=== PATIENT | female | born 1955 | race Caucasian/White ===

== ENCOUNTER 2018-01-08 14:16 | Outpatient (RCR) | payer BC, OTHER ==
[2018-01-08] MEDS ORDERED: ONDANSETRON MDV (CANCER CENTER 8 MG, DEXAMETHASONE INJECTION 10 MG in NS (IVPB) CANCER ... IV ONE (16:00)
[2018-01-12] MEDS ORDERED: LISI10TA2 (22:59)
[2018-01-12] MEDS ORDERED: AMLO10TA6 (22:59)
[2018-01-12] MEDS ORDERED: DEXA4TAB (22:59)
[2018-01-12] MEDS ORDERED: ONDA8TAB12 (22:59)
[2018-01-12] MEDS ORDERED: PANT40TA3 (22:59)
[2018-01-12] MEDS ORDERED: PROM25TA14 (22:59)
== END 2018-01-25 | disposition home or self-care (01) ==
LOC: ONC 14:16
PROVIDERS: ATTEND Internal Medicine Hematology & Oncology
DX: C43.4 Malignant melanoma of scalp and neck (principal); C73 Malignant neoplasm of thyroid gland; C77.0 Secondary and unspecified malignant neoplasm of lymph nodes of head, face and neck; M06.9 Rheumatoid arthritis, unspecified; M79.7 Fibromyalgia; I10 Essential (primary) hypertension; G43.909 Migraine, unspecified, not intractable, without status migrainosus; R11.0 Nausea; Z79.899 Other long term (current) drug therapy
CPT/HCPCS: 96374

== ENCOUNTER 2018-01-12 21:23 | Emergency (ER) | payer BC ==
[~2018-01-12] VITALS: Ht 167.6 cm; Wt 127.0 kg
[2018-01-12] MEDS ORDERED: ONDA8TAB12 (22:59)
[2018-01-12] MEDS ORDERED: PANT40TA3 (22:59)
[2018-01-12] MEDS ORDERED: PROM25TA14 (22:59)
[2018-01-12] MEDS ORDERED: LISI10TA2 (22:59)
[2018-01-12] MEDS ORDERED: AMLO10TA6 (22:59)
[2018-01-12] MEDS ORDERED: DEXA4TAB (22:59)
[2018-01-12] MEDS ORDERED: NS IV 1000 ML 1,000 ML IV STA (23:03)
[2018-01-12] MEDS ORDERED: fentaNYL INJECTION 100 MCG/2 ML AMP IVP STA (23:03)
[2018-01-12] MEDS ORDERED: ONDANSETRON 4 MG/2 ML (SDV) Z0FRAN IVP ONE (23:15)
[2018-01-12 23:24] LABS: BILIRUBIN,URINE NEGATIVE (NEGATIVE); CLARITY,URINE CLEAR; COLOR,URINE YELLOW; GLUCOSE, URINE (UA) NEGATIVE (NEGATIVE); KETONES,URINE NEGATIVE (NEGATIVE); LEUKOCYTE ESTERASE ,URINE 2+ (NEGATIVE); NITRITE,URINE NEGATIVE (NEGATIVE); PH,URINE 5 (5-9); PROTEIN,URINE NEGATIVE (NEGATIVE); UROBILINOGEN,URINE NORMAL (NORMAL)
[2018-01-12 23:36] LABS: BACTERIA,URINE MODERATE /HPF; HYALINE CASTS, URINE 0-2 /LPF; RBC,URINE RARE /HPF; WBC,URINE 0-2 /HPF
[2018-01-12 23:47] LABS: BASOPHILS % (AUTO) 0 % (0-10); EOSINOPHILS % (AUTO) 0 % (0-10); HEMATOCRIT 40 % (35-52); HEMOGLOBIN 13.8 G/DL (11.5-16.0); LYMPHOCYTES # (AUTO) 0.8 X 10^3 (1.0-4.0); LYMPHOCYTES % (AUTO) 13 % (12-44); MEAN CORPUSCULAR HEMOGLOBIN 32 PG (25-34); MEAN CORPUSCULAR HGB CONC 35 G/DL (32-36); MEAN CORPUSCULAR VOLUME 92 FL (80-99); MEAN PLATELET VOLUME 10.6 FL (7.4-10.4); MONOCYTES # (AUTO) 0.2 X 10^3 (0.0-1.0); MONOCYTES % (AUTO) 3 % (0-12); NEUTROPHILS # (AUTO) 5.3 X 10^3 (1.8-7.8); NEUTROPHILS % (AUTO) 85 % (42-75); PLATELET COUNT 267 10^3/uL (130-400); RED BLOOD COUNT 4.37 10^6/uL (4.35-5.85); RED CELL DISTRIBUTION WIDTH 13.6 % (10.0-14.5); WHITE BLOOD COUNT 6.3 10^3/uL (4.3-11.0)
--- NOTE | 2018-01-12 23:49 | ED Abdominal Pain ---
General Chief Complaint: Abdominal/GI Problems Stated Complaint: STOMACH NAUSEA/PAIN Nursing Triage Note: ABDOMINAL PAIN Sepsis Screen: No Definite Risk Source of Information: Patient Exam Limitations: No Limitations History of Present Illness Date Seen by Provider: Jan 12, 2018 Time Seen by Provider: 23:00 Initial Comments Here with report of weeks of nausea and abdominal pain. States abdominal pain is all over. She is currently undergoing treatment for melanoma and had neck dissection. She also has thyroid cancer and will need thyroidectomy. She is not currently on chemotherapy or radiation therapy. She has had problems with nausea and vomiting for the last several weeks and was initiated on ondansetron. This has not helped. She does not really take anything for pain. She eats a little and drinks a little each day but states it's not very much. Intermittent loose stool noted. Denies dysuria. Denies blood in her urine or stool. Timing/Duration: Changing Over Time, Getting Worse, Other (3 weeks) Severity/Quality: Moderate, Aching Location: Generalized Abdomen Radiation: No Radiation Activities at Onset: None Modifying Factors: Worsens With Eating, Worsens With Movement; Improves With Resting Associated Symptoms: No Back Pain, No Chest Pain, No Diaphoresis, No Fever/ Chills; Fatigue, Nausea/Vomiting; No Shortness of Air; Weakness Allergies and Home Medications Allergies Coded Allergies: No Known Drug Allergies (Unverified , 01/08/18) Patient Home Medication List Home Medication List Reviewed: Yes Review of Systems Review of Systems Constitutional: see HPI; No chills, No fever EENTM: No Symptoms Reported Respiratory: No Symptoms Reported Cardiovascular: No Symptoms Reported Gastrointestinal: See HPI, Abdominal Pain, Diarrhea, Nausea; Denies Rectal Bleeding; Vomiting Genitourinary: No Symptoms Reported Musculoskeletal: no symptoms reported All Other Systems Reviewed Negative Unless Noted: Yes Past Kiohvgj-Bspijk-Nwgvcv Hx Past Med/Social Hx: Reviewed Nursing Past Med/Soc Hx Patient Social History Alcohol Use: Denies Use Recreational Drug Use: No Smoking Status: Never a Smoker 2nd Hand Smoke Exposure: No Recent Foreign Travel: No Contact w/Someone Who Travel: No Recent Infectious Disease Expo: No Recent Hopitalizations: No Immunizations Up To Date Tetanus Booster (TDap): Unknown Seasonal Allergies Seasonal Allergies: No Past Medical History Surgeries: Yes (B-KNEES, HERNIA, neck dissection for lymph nodes 2) Abdominal, Gallbladder, Orthopedic Respiratory: No Cardiac: Yes Hypertension Neurological: No : 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 oz. 127.741507yd; BMI Method:Estimated General Appearance: WD/WN, no apparent distress, obese HEENT: PERRL/EOMI, pharynx normal, other (surgical wound on the left side of the neck healing well.) Respiratory: lungs clear, normal breath sounds Cardiovascular: regular rate, rhythm, no murmur Gastrointestinal: soft; No guarding, No rebound; tenderness (mild diffuse tenderness in different areas without 1 that is standing at the most.) Extremities: non-tender, normal inspection Back: normal inspection, no CVA tenderness, no vertebral tenderness Neurologic/Psychiatric: alert, oriented x 3 Skin: normal color, warm/dry Focused Exam Lactate Level 01/13/18 00:22: Lactic Acid Level 0.75 Lactic Acid Level Laboratory Tests Test 01/13/18 00:22 Lactic Acid Level 0.75 MMOL/L (0.50-2.00) Progress/Results/Core Measures Results/Orders Lab Results Laboratory Tests Test 01/12/18 23:10 01/12/18 23:15 01/13/18 00:22 Range/Units Urine Color YELLOW Urine Clarity CLEAR Urine pH 5 5-9 Urine Specific Jordan 1.020 1.016-1.022 Urine Protein NEGATIVE NEGATIVE Urine Glucose (UA) NEGATIVE NEGATIVE Urine Ketones NEGATIVE NEGATIVE Urine Nitrite NEGATIVE NEGATIVE Urine Bilirubin NEGATIVE NEGATIVE Urine Urobilinogen NORMAL NORMAL MG/DL Urine Leukocyte Esterase 2+ H NEGATIVE Urine RBC (Auto) 2+ H NEGATIVE Urine RBC RARE /HPF Urine WBC 0-2 /HPF Urine Squamous Epithelial Cells 5-10 /HPF Urine Crystals NONE /LPF Urine Bacteria MODERATE H /HPF Urine Casts PRESENT /LPF Urine Hyaline Casts 0-2 H /LPF Urine Mucus SMALL H /LPF Urine Culture Indicated YES White Blood Count 6.3 4.3-11.0 10^3/uL Red Blood Count 4.37 4.35-5.85 10^6/uL Hemoglobin 13.8 11.5-16.0 G/DL Hematocrit 40 35-52 % Mean Corpuscular Volume 92 80-99 FL Mean Corpuscular Hemoglobin 32 25-34 PG Mean Corpuscular Hemoglobin Concent 35 32-36 G/DL Red Cell Distribution Width 13.6 10.0-14.5 % Platelet Count 267 130-400 10^3/uL Mean Platelet Volume 10.6 H 7.4-10.4 FL Neutrophils (%) (Auto) 85 H 42-75 % Lymphocytes (%) (Auto) 13 12-44 % Monocytes (%) (Auto) 3 0-12 % Eosinophils (%) (Auto) 0 0-10 % Basophils (%) (Auto) 0 0-10 % Neutrophils # (Auto) 5.3 1.8-7.8 X 10^3 Lymphocytes # (Auto) 0.8 L 1.0-4.0 X 10^3 Monocytes # (Auto) 0.2 0.0-1.0 X 10^3 Eosinophils # (Auto) 0.0 0.0-0.3 10^3/uL Basophils # (Auto) 0.0 0.0-0.1 10^3/uL Sodium Level 137 135-145 MMOL/L Potassium Level 5.1 H 3.6-5.0 MMOL/L Chloride Level 107 98-107 MMOL/L Carbon Dioxide Level 19 L 21-32 MMOL/L Anion Gap 11 5-14 MMOL/L Blood Urea Nitrogen 38 H 7-18 MG/DL Creatinine 1.86 H 0.60-1.30 MG/DL Estimat Glomerular Filtration Rate 27 BUN/Creatinine Ratio 20 Glucose Level 140 H 70-105 MG/DL Calcium Level 9.6 8.5-10.1 MG/DL Corrected Calcium 9.4 8.5-10.1 MG/DL Total Bilirubin 0.5 0.1-1.0 MG/DL Aspartate Amino Transf (AST/SGOT) 18 5-34 U/L Alanine Aminotransferase (ALT/SGPT) 22 0-55 U/L Alkaline Phosphatase 92 40-136 U/L C-Reactive Protein High Sensitivity 0.12 0.00-0.50 MG/DL Total Protein 7.3 6.4-8.2 GM/DL Albumin 4.2 3.2-4.5 GM/DL Thyroid Stimulating Hormone (TSH) 0.19 L 0.35-4.94 UIU/ML Free Thyroxine 1.19 0.70-1.48 NG/DL Lactic Acid Level 0.75 0.50-2.00 MMOL/L My Orders Orders - KISHA GALLO MD Cbc With Automated Diff (01/12/18 23:03) Comprehensive Metabolic Panel (01/12/18 23:03) Hs C Reactive Protein (01/12/18 23:03) Thyroid Stimulating Hormone (01/12/18 23:03) Ua Culture If Indicated (01/12/18 23:03) Ondansetron Injection (Zofran Injectio (01/12/18 23:15) Ns Iv 1000 Ml (Sodium Chloride 0.9%) (01/12/18 23:03) Saline Lock/Iv-Start (01/12/18 23:03) Fentanyl Injection (Sublimaze Injection (01/12/18 23:03) I-Stat Bedside Testing (01/12/18 23:03) Ct Abdomen/Pelvis Wo (01/12/18 23:36) Urine Culture (01/12/18 23:10) Lactic Acid Analyzer (01/12/18 23:38) Blood Culture (01/12/18 23:38) Chest Pa/Lat (2 View) (01/13/18 00:01) Free T4 (Free Thyroxine) (01/13/18 00:35) Medications Given in ED Current Medications Medications Dose Ordered Sig/Greyson Route Start Time Stop Time Status Last Admin Dose Admin Ondansetron HCl 4 mg ONCE ONCE IVP 01/12/18 23:15 01/12/18 23:16 DC 01/12/18 23:11 4 MG Vital Signs/I&O 01/12/18 22:50 Temp 98.6 Pulse 72 Resp 18 B/P (MAP) 128/65 (86) Pulse Ox 94 O2 Delivery Room Air Blood Pressure Mean: 86 iStat Bedside Lab Testing Sodium (Na): 139.00 Potassium (K): 5.00 Chloride (CI): 105.00 TCO2: 24.00 Glucose (Glu): 143.00 Urea Nitrogen (BUN)/Urea: 41.00 Creatinine (Crea): 1.90 Anion Gap*: 15.00 Progress Progress Note : Progress Note Seen and evaluated. IV, labs, UA, normal saline 1 L bolus, Zofran 4 mg IV and fentanyl 50 g IV ordered. We did check i-STAT and creatinine was noted to be 1.9. CT abdomen and pelvis without contrast ordered due to elevated creatinine. 2351: CT does show questionable infiltrate at the left base and two -view chest x-ray was ordered. We have added blood cultures and lactic acid. Monitor patient. 0115: Patient is doing better with fluids and meds given earlier. CT results discussed with the patient and family. Appears to be somewhat dehydration problem and this was discussed with the patient and family. At this point, admission seems more risky than discharged home and supportive therapy at home. Patient and family agree. 0145: Fluids complete. Discharged home with return precautions. Patient verbalize understanding instructions and agreement with plan. Diagnostic Imaging Diagonstic Imaging: CT Plain Films/CT/US/NM/MRI: abdomen, pelvis Comments Suspected atelectasis and/or scar at lung bases. Correlate for any evidence of left lung base infiltrate. No bowel obstruction. There are a few mildly distended small bowel segments with air fluid levels. Portions of bowel including the colon under distended limiting and evaluation for wall thickening. Difficult to exclude mural thickening and under distended bowel. No. Enteric inflammatory changes. Diverticulosis without diverticulitis. Reviewed: Reviewed Night [facility] Study Diagonstic Imaging: Xray Plain Films/CT/US/NM/MRI: chest Comments Left basilar atelectasis Reviewed: Reviewed by Me Departure Impression Primary Impression: Dehydration Additional Impression: Diffuse abdominal pain Disposition: HOME, SELF-CARE Condition: Improved Departure-Patient Inst. Decision time for Depature: 01:48 Referrals: DENAE TURNER MD (PCP) Primary Care Physician Patient Instructions: Acute Abdomen (Belly Pain), Adult (DC), Dehydration, Adult (DC) Add. Discharge Instructions: All discharge instructions reviewed with patient and/or family. Voiced understanding. Drink plenty of fluids. Follow-up with your DrAdam in one to 2 days for recheck. Light diet for the next 24-48 hours and then advance as tolerated. Return for worse pain, fever, vomiting, weakness, breathing problems or other concerns as needed. Copy Copies To 1: DERRELL LEIJA MD, TIMOTHY D MD Jan 12, 2018 23:49
[2018-01-13 00:09] LABS: ALBUMIN 4.2 GM/DL (3.2-4.5); BILIRUBIN,TOTAL 0.5 MG/DL (0.1-1.0); CALCIUM 9.6 MG/DL (8.5-10.1); CREATININE SERUM 1.86 MG/DL (0.60-1.30); POTASSIUM 5.1 MMOL/L (3.6-5.0); TOTAL PROTEIN 7.3 GM/DL (6.4-8.2)
[2018-01-13 02:05] VITALS: BP 138/81
--- NOTE | 2018-01-13 07:00 | Diagnostic Imaging Report ---
PROCEDURE: CT abdomen and pelvis without contrast. TECHNIQUE: Multiple contiguous axial images were obtained through the abdomen and pelvis without the use of intravenous contrast. INDICATION: Abdominal pain with nausea, vomiting, diarrhea for 3 weeks. COMPARISON: None FINDINGS: There is airspace opacity in the left lung base with elevation of the left hemidiaphragm. The heart is upper normal in size. There is no pericardial effusion. There is coronary atherosclerosis. No focal liver lesions are seen. Cholecystectomy clips are noted. The spleen appears normal. The pancreas is normal. The adrenal glands appear normal. The right kidney is normal with no hydronephrosis or stone seen. The left kidney demonstrates no hydronephrosis as well, with a 2 cm parapelvic cyst present. There is calcific atherosclerosis of the aorta. A small hiatal hernia is present. The bowel loops are nondistended without findings of obstruction. There is no evidence of appendicitis. The colon is predominantly decompressed. A few diverticula are seen in the descending and sigmoid colon without evidence of diverticulitis. No free fluid or free air seen. No acute osseous abnormality is seen. IMPRESSION: 1. Airspace opacity in the left lung base, likely atelectasis although underlying infection is not excluded. 2. No evidence of bowel obstruction. 3. Colonic diverticulosis without diverticulitis. 4. Small hiatal hernia. Dictated by: Dictated on workstation # [id number]
--- NOTE | 2018-01-13 07:05 | Diagnostic Imaging Report ---
PATIENT HISTORY: Abdominal pain with nausea, vomiting, and diarrhea. TECHNIQUE: 2 views of the chest COMPARISON: None FINDINGS: There are left basilar airspace opacities. The heart is upper normal in size. No pneumothorax or large pleural effusion is seen. No acute osseous abnormality seen. There are surgical clips in the left neck. IMPRESSION: Left basilar airspace opacities, may represent atelectasis or infiltrate. No large effusion is seen. Dictated by: Dictated on workstation # [id number]
== END 2018-01-13 02:05 | disposition home or self-care (01) ==
LOC: EDUNIT# 21:23 → ER 21:25
DX: E86.0 Dehydration (principal); R10.84 Generalized abdominal pain; C43.9 Malignant melanoma of skin, unspecified; C73 Malignant neoplasm of thyroid gland; I10 Essential (primary) hypertension; M06.9 Rheumatoid arthritis, unspecified; Z87.19 Personal history of other diseases of the digestive system
CPT/HCPCS: 36415; 71046; 74176; 80053; 81000; 83605; 84439; 84443; 85025; 86141; 87040; 87077; 87088; 96361; 96374; 96375

== ENCOUNTER 2018-02-17 11:41 | Outpatient (CLI) | payer BC ==
[~2018-02-17] VITALS: Ht 157.5 cm; Wt 114.3 kg
[~2018-02-17 11:41] MED LIST: AMLO10TA6 PO; DEXA4TAB; LISI10TA2 PO; ONDA8TAB12 PO; PANT40TA3 PO; PROM25TA14
[2018-02-17] MEDS ORDERED: LEVO25TA5 PO (13:25)
== END 2018-02-17 13:41 | disposition home or self-care (01) ==
LOC: PREOP 11:41
PROVIDERS: ATTEND Surgery
DX: Z01.818 Encounter for other preprocedural examination (principal)

== ENCOUNTER 2018-02-18 08:08 | Day surgery (SDC) | payer BC ==
[~2018-02-18] VITALS: Ht 157.5 cm; Wt 114.3 kg
[~2018-02-18 08:08] MED LIST changes: +LEVO25TA5 PO
[2018-02-18] MEDS ORDERED: LACTATED RINGERS 1,000 ML IV PRN (08:39)
[2018-02-18] MEDS ORDERED: FAMOTIDINE 20MG/2ML IV (PEPCID) IV ONE (08:45)
[2018-02-18] MEDS ORDERED: ONDANSETRON 4 MG/2 ML (SDV) Z0FRAN IV ONE (08:45)
[2018-02-18] MEDS ORDERED: ceFAZolin 2 GM IV Premixed 50 ML IV ONE (09:30)
[2018-02-18 09:36] VITALS: BP 140/87
--- NOTE | 2018-02-18 10:17 | Progress Note-Pre Operative ---
Pre-Operative Progress Note H&P Reviewed The H&P was reviewed, patient examined and no changes noted. Time Seen by Provider: 10:14 Date H&P Reviewed: Feb 18, 2018 Time H&P Reviewed: 10:16 Pre-Operative Diagnosis: , Metastatic Melanoma ROYA BABCOCK DO Feb 18, 2018 10:17
[2018-02-18] MEDS ORDERED: 0.9% SODIUM CHLORIDE PF INJ 20 ML VIAL ONE (10:28)
[2018-02-18] MEDS ORDERED: HEParin (CENTRAL IV FLUSH) 500 UNIT/5 ML SYR ONE (10:28)
[2018-02-18] MEDS ORDERED: LIDOCAINE/EPI 1%-1:200,000 (XYLOCAINE) 10 ML VIAL ONE (10:28)
[2018-02-18] MEDS ORDERED: PROPOFOL INJECTION 50 ML IV ONE (10:28)
[2018-02-18] MEDS ORDERED: MIDAZOLAM 2 MG/2 ML (VERSED) VIAL ONE (10:29)
--- NOTE | 2018-02-18 11:26 | Progress Note-Post Operative ---
Post-Operative Progess Note Surgeon (s)/Cook Helper Juice (s) Surgeon ROYA BABCOCK DO Cook Helper Juice: none Pre-Operative Diagnosis , Metastatic Melanoma Post-Operative Diagnosis same Procedure & Operative Findings Date of Procedure 02/18/18 Procedure Performed/Findings Insertion of leta-cath Anesthesia Type IV sedation by PACKAGE CAR DRIVER Estimated Blood Loss Estimated blood loss (mL): scant Specimens/Packing Specimens Removed none ROYA BABCOCK DO Feb 18, 2018 11:26
--- NOTE | 2018-02-18 11:29 | Discharge Inst-Surgical ---
Discharge Inst-Surgical Depart Medication/Instructions New, Converted or Re-Newed RX: Other (No RX needed, pt has home pain meds) Patient Instructions Follow up Appt: Make appointment for 1 week. Instructions: No lifting greater than 10 pounds. No strenuous activity. May shower in 24 hours, no tub bath or soaking. Use incentive spirometer at home as directed. No Smoking Skin/Wound Care: May remove bandages in am. You need to leave the Dermabond on over incision it will fall off its own. Symptoms to Report: Appetite Changes, Extremity Discoloration, Numbness/Tingling, Swelling Increased , Bleeding Excessive, Eyesight Changes, Pain Increased, Urine Color Change, Constipation(Persistent), Fever over 101 degree F, Pain/Pressure in chest, Urinating Difficulty, Cough Up/Vomit Blood, Heart Beat Irreg/Pounding, Pain/ Pressure in jaw, Vaginal Bleeding Increase, Cramps in feet or legs, Lightheadedness, Pain/Pressure in shoulder, Diarrhea(Persistent), Memory Changes Suddenly, Questions/Concerns, Weight gain consecutive days, Dizziness/ Fainting, Nausea/Vomiting, Shortness of Breath, Weight gain over 2 pounds If questions or concerns contact your physician Or seek help at emergency department. Activity Activity as Tolerated: Yes Driving Instructions: No Driving/Refer to Dr. Julien Discharge Diet: No Restrictions Diet After 24 Hours: Clear Liquid if Nauseous If Any Problems/Questions/Issu: Contact Your Physician, Go to Emergency Room Skin/Wound Care Infection Signs and Symptoms: Increased Redness, Foul Odor of Wound, Increased Drainage, Skin Itchy or Has a Rash, Increased Swelling, Temperature Above 101 F Bathing Instructions: Shower Stitches/Prospect/Dermabond Dis: Dermabond Ice Pack: Ice On and Off Site (as needed for pain) ROYA BABCOCK DO Feb 18, 2018 11:29
[2018-02-18] MEDS ORDERED: ONDANSETRON 4 MG/2 ML (SDV) Z0FRAN IVP PRN (11:30)
[2018-02-18] MEDS ORDERED: morphine INJ 10 MG/ML 1ML (SYR OR VIAL) IVP ONE (11:30)
[2018-02-18 11:50] VITALS: BP 156/83
--- NOTE | 2018-02-18 11:59 | Anesthesia-General Post-Op ---
MAC Patient Condition Mental Status/LOC: Same as Preop Cardiovascular: Satisfactory Nausea/Vomiting: Absent Respiratory: Satisfactory Pain: Controlled Complications: Absent Post Op Complications Complications None Follow Up Care/Instructions Patient Instructions None needed. Anesthesiology Discharge Order Discharge Order Patient is doing well, no complaints, stable vital signs, no apparent adverse anesthesia problems. No complications reported per nursing. EUGENIA GALEANO CRNA Feb 18, 2018 11:59
--- NOTE | 2018-02-18 12:17 | Diagnostic Imaging Report ---
Indication: Dyspnea, catheter placement. Comparison: 01/13/2018. Discussion: Single portable upright view of the chest was obtained. Low lung volumes. The heart appears enlarged. Right chest wall Rgzmao-k-Obab is present with tip in the distal SVC. No pneumothorax. No definite pleural fluid. Impression: 1. Right chest wall Aoydyn-n-Zhmj with tip in the distal SVC. No pneumothorax. Dictated by: Dictated on workstation # [id number]
[2018-02-18 12:20] VITALS: BP 136/75
--- NOTE | 2018-02-18 12:24 | Diagnostic Imaging Report ---
INDICATION: Fluoroscopy during port placement. FINDINGS: Fluoroscopy was provided during port placement. 6 seconds of fluoroscopy was utilized. A right chest wall port is in place. IMPRESSION: Fluoroscopy for right chest wall port placement. Dictated by: Dictated on workstation # [id number]
[2018-02-18 12:45] VITALS: BP 136/75
--- NOTE | 2018-02-18 16:05 | OPERATIVE REPORT ---
DATE OF SERVICE: PREOPERATIVE DIAGNOSES: Venous insufficiency and metastatic melanoma. POSTOPERATIVE DIAGNOSES: Venous insufficiency and metastatic melanoma. PROCEDURE: Insertion of Port-A-Cath into right anterior chest wall, right subclavian vein. SURGEON: Doe Parry DO. CAR SUPPLIER: None. ANESTHESIA: IV sedation by the anesthesiologist. SPECIMEN: None. BLOOD LOSS: Scant. FLUIDS: Per anesthesia. POSTOPERATIVE CONDITION: Stable. INDICATION FOR PROCEDURE: The patient is a 62-year-old female who unfortunately has metastatic melanoma and has had some venous insufficiency, has had problems in the past with IVs and needs a Port-A-Cath placed for long-term chemotherapy. FINDINGS: The patient had a Port-A-Cath placed anterior chest wall and right subclavian vein. PROCEDURE NOTE: After informed consent was obtained, the patient was brought to the operating room, placed on the table in supine position. She was sterilely prepped and draped in normal fashion, then placed slightly Trendelenburg infiltrate the right anterior chest wall and towards the right clavicle with local lidocaine. Then, using an 18-gauge negative inspiration advanced under the clavicle. Cannulated the subclavian vein, but then could not advance pushed a little bit forward and actually get into the subclavian artery pulled this back held pressure for 5 minutes and then advanced again negative inspiration and again cannulated the subclavian vein. This was able to get the guidewire to go down, could not get down the first time; went down easily without any difficulty. Fluoroscopy checked, it was in good position. There was actually into the heart. Pulled out the needle and then held clamped the wire in place with a hemostat and then made a stab incision at the guidewire with a #11 blade and then using an #11 blade, made an incision in the right anterior chest wall to create a pocket. Carried this incision down through the skin into subcutaneous tissue, then deepened down to subcutaneous tissue with Bovie electrocautery controlling hemostasis and then using Bovie electrocautery as well as blunt dissection to create a pocket. Once the pocket was created, then over the guidewire placed the dilator using Seldinger technique, it went in easily, checked with fluoroscopy, it was in good position, removed the inner portion of the dilator as well as the guidewire and then placed the catheter down the dilator sheath using the Seldinger technique, it went in easily, then checked with fluoroscopy, it was in good position, removed the dilator sheath. At this point then pulled the catheter back a little bit and then attached the catheter to the port and then placed locking mechanism over this to hold this in place, accessed the port with a Sapp needle. Good flash of blood and easily flushed with saline and then switched to , aspirated and then flushed with 2 mL of heparin flush. I then placed the port into the pocket previously created, sutured down in place with 3-0 Prolene suture and then incision was closed in a subcutaneous tissue with 3-0 Vicryl, 2 interrupted sutures and closed the skin, closed the first a stab incision with a 4-0 undyed Monocryl subcuticular stitch and closed. Then, the main incision with 3 interrupted 4-0 undyed Monocryl subcuticular stitches. Area was cleaned and dried and Dermabond was placed as well as a pressure dressing. The patient then transferred to recovery room in stable condition. Sponge, instrument and needle counts correct at the end of the case. Job ID: [id number] DocumentID: [id number] Dictated Date: 02/18/2018 11:26:10 Senior Fund Accountant Date: 02/18/2018 16:04:24 Dictated By: DOE PARRY DO
== END 2018-02-18 12:45 | disposition home or self-care (01) ==
LOC: SDC 08:08
PROVIDERS: ATTEND Surgery
DX: C43.4 Malignant melanoma of scalp and neck (principal); C79.89 Secondary malignant neoplasm of other specified sites; I87.2 Venous insufficiency (chronic) (peripheral); Z11.2 Encounter for screening for other bacterial diseases; I11.0 Hypertensive heart disease with heart failure; I50.9 Heart failure, unspecified; G47.33 Obstructive sleep apnea (adult) (pediatric); M06.9 Rheumatoid arthritis, unspecified; K21.9 Gastro-esophageal reflux disease without esophagitis; Z79.899 Other long term (current) drug therapy; Z96.653 Presence of artificial knee joint, bilateral
CPT/HCPCS: 71045; 87081

== ENCOUNTER → 2018-03-27 | Outpatient (CLI) | payer BC ==
--- NOTE | 2018-03-27 10:37 | Diagnostic Imaging Report ---
INDICATION: Dysphagia. TECHNIQUE: The study was performed in conjunction with Speech Pathology. Videofluoroscopy was performed during the swallowing of barium in multiple consistencies. 1 minute 34 seconds of fluoroscopy was utilized. FINDINGS: The patient ingested thin liquid as well as pur?e, mechanical soft, meat, and cracker consistencies. The swallowing mechanism appears to be fairly normal. There is normal epiglottic tilt and laryngeal elevation. No penetration or aspiration was observed. There is very mild vallecular residue noted during the swallowing of the meat consistency. IMPRESSION: Mild vallecular residue with meat consistency. The study was otherwise unremarkable. No penetration or aspiration was observed. Dictated by: Dictated on workstation # [id number]
== END ==
LOC: RAD 08:51
PROVIDERS: ATTEND Internal Medicine Gastroenterology
DX: R13.10 Dysphagia, unspecified (principal)
CPT/HCPCS: 74230

== ENCOUNTER → 2018-07-15 | Outpatient (CLI) | payer BC ==
[~2018-07-15] MED LIST changes: -AMLO10TA6 PO; +AMLO10TA7 PO
--- NOTE | 2018-07-15 12:04 | Diagnostic Imaging Report ---
INDICATION: Left shoulder pain. AP, oblique, and transscapular views of the left shoulder are obtained. FINDINGS: No acute fracture or dislocation is seen. There is degenerative change of the AC joint and mild degenerative change of the glenohumeral joint. There is minimal distance between the acromion and humeral head on the oblique view, raising the possibility of rotator cuff pathology. IMPRESSION: Chronic changes in left shoulder as above with no acute appearing abnormality. There is minimal distance between the acromion and humeral head raising the possibility of rotator cuff pathology. Consider MRI if clinically warranted. Dictated by: Dictated on workstation # [id number]
== END ==
LOC: RAD 10:19
PROVIDERS: ATTEND Internal Medicine Hematology & Oncology
DX: M19.012 Primary osteoarthritis, left shoulder (principal)
CPT/HCPCS: 73030

== ENCOUNTER → 2018-07-21 | Outpatient (CLI) | payer BC ==
--- NOTE | 2018-07-21 13:12 | Diagnostic Imaging Report ---
INDICATION: Pelvic pain. COMPARISON: None. FINDINGS: AP view of the pelvis and multiple dedicated radiographic views of the bilateral hips obtained. There is no fracture, dislocation, bone destruction, or radiopaque foreign body. The visualized pelvic osseous structures and the SI joints demonstrate no acute fracture or dislocation. There is no bone destruction or radiopaque foreign body. The surrounding soft tissue structures are unremarkable. IMPRESSION: 1. Unremarkable radiographic exam of the pelvis and bilateral hips. Dictated by: Dictated on workstation # [id number]
--- NOTE | 2018-07-21 15:01 | Diagnostic Imaging Report ---
EXAMINATION: Magnetic resonance imaging of the left shoulder without contrast. DATE: July 21, 2018. COMPARISON: Left shoulder radiographs of July 15, 2018. HISTORY: 62-year-old female, left shoulder and arm pain. Decreased range of motion. TECHNIQUE: Magnetic Resonance Imaging sequences were performed of the shoulder without contrast. FINDINGS: There are limitations of the exam relating to low [id number] ratio. ROTATOR CUFF, LIGAMENTS, TENDONS, AND MUSCLES: There is a full width, full thickness tear of the supraspinatus tendon with tendon retraction to the level of the superior humeral head measuring 14 mm. The infraspinatus and teres minor tendons are intact. The subscapularis tendon is intact. There is normal rotator cuff muscle bulk and signal. LONG HEAD OF BICEPS: The biceps labral attachment and long head of the biceps tendon are intact. The long head of the biceps tendon is normally positioned within the bicipital groove. GLENOHUMERAL JOINT: The humeral head is well positioned relative to the glenoid. The labrum is grossly intact. There is no identified paralabral cyst. The articular cartilage is grossly intact. There is no joint effusion. ACROMIOCLAVICULAR JOINT: The acromioclavicular joint is normally aligned. The coracoclavicular and coracoacromial ligaments are intact. There are moderate acromioclavicular degenerative changes with osteophytes extending approximately 3 mm below the joint margin. BONE: There is no os acromiale. The bone marrow signal is within normal limits. Specifically, negative for fracture, osteomyelitis, osteonecrosis, or marrow replacing process. BURSAE AND SOFT TISSUES: Bursal and additional soft tissue assessment is grossly unremarkable. The very small amount of fluid within the subacromial/subdeltoid bursa may be within normal limits for detection on MRI. IMPRESSION: 1. Full width, full thickness tear of the supraspinatus tendon with tendon retraction of 1.4 cm to the level of the superior humeral head. No fatty muscle atrophy. 2. Moderate acromioclavicular degenerative changes with 3 mm undersurface osteophytes. No os acromiale. 3. Grossly intact labrum and unremarkable glenohumeral joint assessment. 4. No acute fracture, bone contusion, or evidence of osteonecrosis. Dictated by: Dictated on workstation # [id number]
== END ==
LOC: RAD 11:55
PROVIDERS: ATTEND Internal Medicine Hematology & Oncology
DX: M75.102 Unspecified rotator cuff tear or rupture of left shoulder, not specified as traumatic (principal); M19.012 Primary osteoarthritis, left shoulder; R10.2 Pelvic and perineal pain
CPT/HCPCS: 73221; 73523

== ENCOUNTER 2018-08-26 12:03 | Outpatient (RCR) | payer BC ==
[2018-06-03 11:24] LABS: BASOPHILS % (AUTO) 1 % (0-10); EOSINOPHILS # (AUTO) 0.2 10^3/uL (0.0-0.3); EOSINOPHILS % (AUTO) 3 % (0-10); HEMATOCRIT 41 % (35-52); HEMOGLOBIN 13.3 G/DL (11.5-16.0); LYMPHOCYTES # (AUTO) 1.4 X 10^3 (1.0-4.0); LYMPHOCYTES % (AUTO) 21 % (12-44); MEAN CORPUSCULAR HEMOGLOBIN 29 PG (25-34); MEAN CORPUSCULAR HGB CONC 32 G/DL (32-36); MEAN CORPUSCULAR VOLUME 90 FL (80-99); MEAN PLATELET VOLUME 10.2 FL (7.4-10.4); MONOCYTES # (AUTO) 0.7 X 10^3 (0.0-1.0); MONOCYTES % (AUTO) 10 % (0-12); NEUTROPHILS # (AUTO) 4.4 X 10^3 (1.8-7.8); NEUTROPHILS % (AUTO) 66 % (42-75); PLATELET COUNT 266 10^3/uL (130-400); RED CELL DISTRIBUTION WIDTH 13.3 % (10.0-14.5); WHITE BLOOD COUNT 6.7 10^3/uL (4.3-11.0)
[2018-06-03 11:46] LABS: CARBON DIOXIDE 25 MMOL/L (21-32); CHLORIDE 109 MMOL/L (98-107); POTASSIUM 4.4 MMOL/L (3.6-5.0); SODIUM 142 MMOL/L (135-145)
[2018-06-03 11:47] LABS: ALANINE AMINOTRANSFERASE 15 U/L (0-55); ALBUMIN 3.9 GM/DL (3.2-4.5); ALKALINE PHOSPHATASE 84 U/L (40-136); BILIRUBIN,TOTAL 0.5 MG/DL (0.1-1.0); BUN/CREATININE RATIO 13; CREATININE SERUM 0.86 MG/DL (0.60-1.30); GFR ESTIMATED > 60; GLUCOSE 94 MG/DL (70-105); TOTAL PROTEIN 6.9 GM/DL (6.4-8.2)
[2018-06-18 14:22] LABS: BASOPHILS % (AUTO) 1 % (0-10); EOSINOPHILS # (AUTO) 0.2 10^3/uL (0.0-0.3); EOSINOPHILS % (AUTO) 3 % (0-10); HEMATOCRIT 40 % (35-52); HEMOGLOBIN 13.2 G/DL (11.5-16.0); LYMPHOCYTES # (AUTO) 1.3 X 10^3 (1.0-4.0); LYMPHOCYTES % (AUTO) 20 % (12-44); MEAN CORPUSCULAR HEMOGLOBIN 30 PG (25-34); MEAN CORPUSCULAR HGB CONC 33 G/DL (32-36); MEAN CORPUSCULAR VOLUME 90 FL (80-99); MEAN PLATELET VOLUME 9.6 FL (7.4-10.4); MONOCYTES # (AUTO) 0.6 X 10^3 (0.0-1.0); MONOCYTES % (AUTO) 9 % (0-12); NEUTROPHILS # (AUTO) 4.5 X 10^3 (1.8-7.8); NEUTROPHILS % (AUTO) 68 % (42-75); PLATELET COUNT 266 10^3/uL (130-400); RED CELL DISTRIBUTION WIDTH 13.3 % (10.0-14.5); WHITE BLOOD COUNT 6.6 10^3/uL (4.3-11.0)
[2018-06-18 14:41] LABS: ALBUMIN 3.9 GM/DL (3.2-4.5); BILIRUBIN,TOTAL 0.6 MG/DL (0.1-1.0); CALCIUM 9.4 MG/DL (8.5-10.1); CREATININE SERUM 0.94 MG/DL (0.60-1.30); POTASSIUM 3.6 MMOL/L (3.6-5.0); TOTAL PROTEIN 6.7 GM/DL (6.4-8.2)
[2018-07-01 08:50] LABS: BASOPHILS % (AUTO) 1 % (0-10); EOSINOPHILS # (AUTO) 0.2 10^3/uL (0.0-0.3); EOSINOPHILS % (AUTO) 4 % (0-10); HEMATOCRIT 40 % (35-52); HEMOGLOBIN 12.9 G/DL (11.5-16.0); LYMPHOCYTES # (AUTO) 1.2 X 10^3 (1.0-4.0); LYMPHOCYTES % (AUTO) 23 % (12-44); MEAN CORPUSCULAR HEMOGLOBIN 29 PG (25-34); MEAN CORPUSCULAR HGB CONC 32 G/DL (32-36); MEAN CORPUSCULAR VOLUME 91 FL (80-99); MEAN PLATELET VOLUME 9.9 FL (7.4-10.4); MONOCYTES # (AUTO) 0.4 X 10^3 (0.0-1.0); MONOCYTES % (AUTO) 9 % (0-12); NEUTROPHILS # (AUTO) 3.2 X 10^3 (1.8-7.8); NEUTROPHILS % (AUTO) 64 % (42-75); PLATELET COUNT 241 10^3/uL (130-400); RED CELL DISTRIBUTION WIDTH 13.4 % (10.0-14.5); WHITE BLOOD COUNT 5.1 10^3/uL (4.3-11.0)
[2018-07-01 09:09] LABS: ALANINE AMINOTRANSFERASE 13 U/L (0-55); ALBUMIN 3.9 GM/DL (3.2-4.5); ALKALINE PHOSPHATASE 94 U/L (40-136); BILIRUBIN,TOTAL 0.6 MG/DL (0.1-1.0); BUN/CREATININE RATIO 14; CALCIUM 9.5 MG/DL (8.5-10.1); CARBON DIOXIDE 27 MMOL/L (21-32); CHLORIDE 106 MMOL/L (98-107); CREATININE SERUM 0.91 MG/DL (0.60-1.30); GFR ESTIMATED > 60; GLUCOSE 108 MG/DL (70-105); SODIUM 140 MMOL/L (135-145); TOTAL PROTEIN 6.9 GM/DL (6.4-8.2)
[2018-07-15 09:13] LABS: BASOPHILS % (AUTO) 1 % (0-10); EOSINOPHILS # (AUTO) 0.2 10^3/uL (0.0-0.3); EOSINOPHILS % (AUTO) 4 % (0-10); HEMATOCRIT 39 % (35-52); HEMOGLOBIN 12.7 G/DL (11.5-16.0); LYMPHOCYTES # (AUTO) 1.3 X 10^3 (1.0-4.0); LYMPHOCYTES % (AUTO) 25 % (12-44); MEAN CORPUSCULAR HEMOGLOBIN 30 PG (25-34); MEAN CORPUSCULAR HGB CONC 33 G/DL (32-36); MEAN CORPUSCULAR VOLUME 90 FL (80-99); MEAN PLATELET VOLUME 9.6 FL (7.4-10.4); MONOCYTES # (AUTO) 0.7 X 10^3 (0.0-1.0); MONOCYTES % (AUTO) 13 % (0-12); NEUTROPHILS # (AUTO) 2.8 X 10^3 (1.8-7.8); NEUTROPHILS % (AUTO) 57 % (42-75); PLATELET COUNT 286 10^3/uL (130-400); RED CELL DISTRIBUTION WIDTH 13.6 % (10.0-14.5)
[2018-07-15 09:32] LABS: ALANINE AMINOTRANSFERASE 16 U/L (0-55); ALBUMIN 3.9 GM/DL (3.2-4.5); ALKALINE PHOSPHATASE 86 U/L (40-136); BILIRUBIN,TOTAL 0.6 MG/DL (0.1-1.0); BUN/CREATININE RATIO 15; CALCIUM 9.1 MG/DL (8.5-10.1); CARBON DIOXIDE 24 MMOL/L (21-32); CHLORIDE 109 MMOL/L (98-107); CREATININE SERUM 0.86 MG/DL (0.60-1.30); GFR ESTIMATED > 60; GLUCOSE 92 MG/DL (70-105); POTASSIUM 3.9 MMOL/L (3.6-5.0); SODIUM 142 MMOL/L (135-145); TOTAL PROTEIN 6.8 GM/DL (6.4-8.2)
[2018-07-29 08:42] LABS: BASOPHILS % (AUTO) 1 % (0-10); EOSINOPHILS # (AUTO) 0.3 10^3/uL (0.0-0.3); EOSINOPHILS % (AUTO) 4 % (0-10); HEMATOCRIT 39 % (35-52); HEMOGLOBIN 12.9 G/DL (11.5-16.0); LYMPHOCYTES # (AUTO) 1.3 X 10^3 (1.0-4.0); LYMPHOCYTES % (AUTO) 23 % (12-44); MEAN CORPUSCULAR HEMOGLOBIN 30 PG (25-34); MEAN CORPUSCULAR HGB CONC 33 G/DL (32-36); MEAN CORPUSCULAR VOLUME 90 FL (80-99); MEAN PLATELET VOLUME 9.8 FL (7.4-10.4); MONOCYTES # (AUTO) 0.6 X 10^3 (0.0-1.0); MONOCYTES % (AUTO) 11 % (0-12); NEUTROPHILS # (AUTO) 3.5 X 10^3 (1.8-7.8); NEUTROPHILS % (AUTO) 61 % (42-75); PLATELET COUNT 278 10^3/uL (130-400); RED CELL DISTRIBUTION WIDTH 13.7 % (10.0-14.5); WHITE BLOOD COUNT 5.8 10^3/uL (4.3-11.0)
[2018-07-29 09:06] LABS: ALANINE AMINOTRANSFERASE 27 U/L (0-55); ALBUMIN 3.9 GM/DL (3.2-4.5); ALKALINE PHOSPHATASE 111 U/L (40-136); BILIRUBIN,TOTAL 0.4 MG/DL (0.1-1.0); BUN/CREATININE RATIO 15; CALCIUM 9.3 MG/DL (8.5-10.1); CARBON DIOXIDE 26 MMOL/L (21-32); CHLORIDE 109 MMOL/L (98-107); CREATININE SERUM 0.85 MG/DL (0.60-1.30); GFR ESTIMATED > 60; GLUCOSE 99 MG/DL (70-105); POTASSIUM 3.8 MMOL/L (3.6-5.0); SODIUM 143 MMOL/L (135-145); TOTAL PROTEIN 6.8 GM/DL (6.4-8.2)
[~2018-08-26] VITALS: Ht 167.6 cm; Wt 109.3 kg
[~2018-08-26 12:03] MED LIST changes: +NIVOLUMAB 240 MG in NS (IVPB) CANCER CENTER 50 ML IV SCH; +NS (IVPB) CANCER CENTER 250 ML IV SCH
[2018-08-26 12:31] LABS: BASOPHILS # (AUTO) 0.1 10^3/uL (0.0-0.1); BASOPHILS % (AUTO) 1 % (0-10); EOSINOPHILS # (AUTO) 0.3 10^3/uL (0.0-0.3); EOSINOPHILS % (AUTO) 3 % (0-10); HEMATOCRIT 40 % (35-52); HEMOGLOBIN 12.8 G/DL (11.5-16.0); LYMPHOCYTES # (AUTO) 1.1 X 10^3 (1.0-4.0); LYMPHOCYTES % (AUTO) 15 % (12-44); MEAN CORPUSCULAR HEMOGLOBIN 29 PG (25-34); MEAN CORPUSCULAR HGB CONC 32 G/DL (32-36); MEAN CORPUSCULAR VOLUME 90 FL (80-99); MEAN PLATELET VOLUME 9.8 FL (7.4-10.4); MONOCYTES # (AUTO) 0.5 X 10^3 (0.0-1.0); MONOCYTES % (AUTO) 7 % (0-12); NEUTROPHILS # (AUTO) 5.4 X 10^3 (1.8-7.8); NEUTROPHILS % (AUTO) 73 % (42-75); PLATELET COUNT 267 10^3/uL (130-400); RED CELL DISTRIBUTION WIDTH 13.6 % (10.0-14.5); WHITE BLOOD COUNT 7.3 10^3/uL (4.3-11.0)
[2018-08-26 12:46] LABS: ALANINE AMINOTRANSFERASE 17 U/L (0-55); ALBUMIN 4.1 GM/DL (3.2-4.5); ALKALINE PHOSPHATASE 95 U/L (40-136); BILIRUBIN,TOTAL 0.6 MG/DL (0.1-1.0); BUN/CREATININE RATIO 16; CALCIUM 9.3 MG/DL (8.5-10.1); CARBON DIOXIDE 24 MMOL/L (21-32); CHLORIDE 108 MMOL/L (98-107); CREATININE SERUM 0.89 MG/DL (0.60-1.30); GFR ESTIMATED > 60; GLUCOSE 112 MG/DL (70-105); POTASSIUM 3.8 MMOL/L (3.6-5.0); SODIUM 143 MMOL/L (135-145)
== END 2018-09-01 | disposition home or self-care (01) ==
LOC: ONC 12:03
PROVIDERS: ATTEND Internal Medicine Hematology & Oncology
DX: Z51.11 Encounter for antineoplastic chemotherapy (principal); C43.4 Malignant melanoma of scalp and neck; C73 Malignant neoplasm of thyroid gland; C77.0 Secondary and unspecified malignant neoplasm of lymph nodes of head, face and neck; M06.9 Rheumatoid arthritis, unspecified; M79.7 Fibromyalgia; I10 Essential (primary) hypertension; G43.909 Migraine, unspecified, not intractable, without status migrainosus; R11.0 Nausea; Z79.899 Other long term (current) drug therapy
CPT/HCPCS: 36591; 80053; 84443; 85025; 86800; 96413

== ENCOUNTER → 2018-11-06 | Outpatient (CLI) | payer BC ==
[~2018-11-06] MED LIST changes: +HOLD METFORMIN - RECEIVED CONTRAST 20 ML VIAL IV SCH; +IOHEXOL 350 MG/ML 100 ML (OMNIPAQUE 350) VIAL IV ONE; -NIVOLUMAB 240 MG in NS (IVPB) CANCER CENTER 50 ML IV SCH; -NS (IVPB) CANCER CENTER 250 ML IV SCH; +NS 100 ML (IVPB) BAG IV ONE
--- NOTE | 2018-11-06 14:49 | Diagnostic Imaging Report ---
PROCEDURE: CT neck soft tissue with contrast. TECHNIQUE: Multiple contiguous axial images were obtained through the neck after the administration of contrast. Auto Exposure Controls were utilized during the CT exam to meet ALARA standards for radiation dose reduction. INDICATION: Left-sided neck and shoulder pain. Patient does have history of melanoma of the scalp. COMPARISON: No prior studies are available for comparison. FINDINGS: A right chest wall port is in place. Visualized intracranial structures are unremarkable. The posterior nasopharynx and oropharynx are unremarkable. Larynx is unremarkable. Thyroid appears to be surgically absent. Bilateral submandibular glands are symmetric. Parotid glands are prominent but appear to be fairly symmetric. There is a small nodule along the posterior aspect of the left thyroid measuring 10 mm. There are surgical clips in the left neck anterior to the left sternocleidomastoid muscle. The left sternocleidomastoid muscle is slightly larger than the right with some mild surrounding stranding. This could be on a postsurgical basis. No discrete mass is seen. No fluid collection is identified. There appear to be fairly normal-sized jugulodigastric lymph nodes, although left jugulodigastric region is somewhat difficult to assess due to postsurgical changes. No posterior cervical lymphadenopathy is seen. Supraclavicular region is unremarkable. IMPRESSION: There are postsurgical changes in the left neck. There is some asymmetry in the sternocleidomastoid muscles, left being larger. There is some obscuration of the fat planes in the left neck at the surgical site, which does limit evaluation. MRI of the soft tissue neck with and without IV contrast may prove useful to evaluate for lymphadenopathy due to postsurgical changes noted by CT. Dictated by: Dictated on workstation # [id number]
--- NOTE | 2018-11-06 15:04 | Diagnostic Imaging Report ---
PROCEDURE: CT thoracic spine with contrast. TECHNIQUE: Multiple contiguous axial images were obtained through the thoracic spine after the intrathecal administration of contrast. Sagittal and coronal reformations were then performed. Auto Exposure Controls were utilized during the CT exam to meet ALARA standards for radiation dose reduction. INDICATION: Currently on treatment for malignant melanoma of the scalp and neck. Approximately nine-week history of left-sided neck and shoulder pain along with pain in the posterior aspect of the neck. CORRELATION STUDY: None. FINDINGS: The thoracic spinal alignment is relatively anatomic. Very slight loss of height at the superior T8 endplate is noted, appearing to be be likely nonacute. The remaining thoracic vertebral bodies heights overall are fairly well preserved. Scattered areas of asymmetric hypertrophic facet arthropathy are present with bulky osteophytes, particularly along the anterior and right aspect with some areas of bridging or near-bridging present. Most pronounced areas extending from the T6 to the T10 level. Posterior elements are intact. No rogelio bony destructive change. No significant high-degree osseous narrowing of the canal and/or neuroforamina. Rather pronounced asymmetrically elevated left diaphragm with left lung volume loss. Scarring or atelectasis at the left lower lobe is suggested. Mass-like density in the left infrahilar region would be difficult to exclude. Heart size is enlarged. A right-sided central line is present, tip likely within the high right atrium. Multiple surgical clips at the level of the thyroid bed and base of the neck. IMPRESSION: 1. Negative for acute bony abnormality or rogelio bony destructive changes about the thoracic spine. Multilevel thoracic spondylosis is present. No significant osseous narrowing of the neuroforamina and/or spinal canal. 2. Asymmetrically elevated left diaphragm with left lung volume loss. There are areas of atelectasis and/or infiltrate at the left lung base. Possibility of mass in the left infrahilar region would be difficult to exclude on this study. Dictated by: Dictated on workstation # [id number]
== END ==
LOC: RAD 12:47
PROVIDERS: ATTEND Internal Medicine Hematology & Oncology
DX: C43.4 Malignant melanoma of scalp and neck (principal); M62.89 Other specified disorders of muscle; M47.814 Spondylosis without myelopathy or radiculopathy, thoracic region; Q79.1 Other congenital malformations of diaphragm; Z95.828 Presence of other vascular implants and grafts; Z98.890 Other specified postprocedural states
CPT/HCPCS: 70491; 72129

== ENCOUNTER → 2018-11-16 | Outpatient (CLI) | payer BC ==
[2018-11-16 07:59] LABS: CREATININE SERUM 1.04 MG/DL (0.60-1.30)
--- NOTE | 2018-11-16 09:15 | Diagnostic Imaging Report ---
PROCEDURE: CT chest with contrast only. TECHNIQUE: Multiple contiguous axial images were obtained through the chest after administration of intravenous contrast. Auto Exposure Controls were utilized during the CT exam to meet ALARA standards for radiation dose reduction. DATE: November 16, 2018. COMPARISON: Chest radiograph February 18, 2018. CT thoracic spine November 06, 2018. INDICATION: 63-year-old female, back pain. History of melanoma and thyroid cancer. Abnormal findings on prior CT thoracic spine. FINDINGS: There are predominantly linear and wedge-shaped areas of consolidation in the left lower lobe likely reflecting atelectasis and/or scarring. There is no visualized endobronchial lesion. There is no identified pulmonary nodule or lung mass. There is no additional focal airspace consolidation. There is no pneumothorax. There is no pleural effusion. The additional more central airways are patent. There is elevation of the left hemidiaphragms. There is no identified large central pulmonary embolus. There is nondiagnostic assessment for segmental and subsegmental pulmonary emboli given the timing of the contrast bolus. The heart is not enlarged. There is no identified pericardial effusion. There is no identified abnormally enlarged mediastinal, hilar, or axillary lymph node which meets CT size criteria for adenopathy. The patient is status post thyroidectomy and cholecystectomy. There is no identified bone lesion suspicious for metastatic disease. There are multilevel degenerative changes of the spine. IMPRESSION: CT CHEST. 1. Predominantly linear and wedge-shaped areas of consolidation in the left lower lobe compatible with atelectasis and/or scarring. Elevation of the left hemidiaphragm. 2. No identified acute cardiopulmonary abnormality. 3. Status post thyroidectomy. Dictated by: Dictated on workstation # [id number]
== END ==
LOC: RAD 07:27
PROVIDERS: ATTEND Internal Medicine Hematology & Oncology
DX: C43.4 Malignant melanoma of scalp and neck (principal); J18.1 Lobar pneumonia, unspecified organism; Q79.1 Other congenital malformations of diaphragm; Z90.49 Acquired absence of other specified parts of digestive tract; Z90.89 Acquired absence of other organs; Z85.850 Personal history of malignant neoplasm of thyroid
CPT/HCPCS: 36415; 71260; 82565; 84520

== ENCOUNTER 2018-12-17 14:11 | Outpatient (RCR) | payer BC ==
[2018-09-23 09:22] LABS: BASOPHILS # (AUTO) 0.1 10^3/uL (0.0-0.1); BASOPHILS % (AUTO) 1 % (0-10); EOSINOPHILS # (AUTO) 0.3 10^3/uL (0.0-0.3); EOSINOPHILS % (AUTO) 5 % (0-10); HEMATOCRIT 38 % (35-52); HEMOGLOBIN 12.3 G/DL (11.5-16.0); LYMPHOCYTES # (AUTO) 1.3 X 10^3 (1.0-4.0); LYMPHOCYTES % (AUTO) 25 % (12-44); MEAN CORPUSCULAR HEMOGLOBIN 29 PG (25-34); MEAN CORPUSCULAR HGB CONC 33 G/DL (32-36); MEAN CORPUSCULAR VOLUME 89 FL (80-99); MEAN PLATELET VOLUME 9.8 FL (7.4-10.4); MONOCYTES # (AUTO) 0.6 X 10^3 (0.0-1.0); MONOCYTES % (AUTO) 11 % (0-12); NEUTROPHILS % (AUTO) 57 % (42-75); PLATELET COUNT 275 10^3/uL (130-400); RED CELL DISTRIBUTION WIDTH 13.7 % (10.0-14.5); WHITE BLOOD COUNT 5.2 10^3/uL (4.3-11.0)
[2018-09-23 09:44] LABS: ALANINE AMINOTRANSFERASE 18 U/L (0-55); ALBUMIN 4.1 GM/DL (3.2-4.5); ALKALINE PHOSPHATASE 96 U/L (40-136); BILIRUBIN,TOTAL 0.6 MG/DL (0.1-1.0); BUN/CREATININE RATIO 15; CALCIUM 9.2 MG/DL (8.5-10.1); CARBON DIOXIDE 26 MMOL/L (21-32); CHLORIDE 108 MMOL/L (98-107); CREATININE SERUM 0.93 MG/DL (0.60-1.30); GFR ESTIMATED > 60; GLUCOSE 92 MG/DL (70-105); POTASSIUM 3.6 MMOL/L (3.6-5.0); SODIUM 145 MMOL/L (135-145); TOTAL PROTEIN 7.1 GM/DL (6.4-8.2)
[2018-10-07 10:15] LABS: BASOPHILS % (AUTO) 1 % (0-10); EOSINOPHILS # (AUTO) 0.3 10^3/uL (0.0-0.3); EOSINOPHILS % (AUTO) 4 % (0-10); HEMATOCRIT 38 % (35-52); HEMOGLOBIN 12.2 G/DL (11.5-16.0); LYMPHOCYTES # (AUTO) 1.1 X 10^3 (1.0-4.0); LYMPHOCYTES % (AUTO) 17 % (12-44); MEAN CORPUSCULAR HEMOGLOBIN 29 PG (25-34); MEAN CORPUSCULAR HGB CONC 32 G/DL (32-36); MEAN CORPUSCULAR VOLUME 91 FL (80-99); MEAN PLATELET VOLUME 9.7 FL (7.4-10.4); MONOCYTES # (AUTO) 0.7 X 10^3 (0.0-1.0); MONOCYTES % (AUTO) 11 % (0-12); NEUTROPHILS # (AUTO) 4.4 X 10^3 (1.8-7.8); NEUTROPHILS % (AUTO) 67 % (42-75); PLATELET COUNT 265 10^3/uL (130-400); RED CELL DISTRIBUTION WIDTH 13.8 % (10.0-14.5); WHITE BLOOD COUNT 6.6 10^3/uL (4.3-11.0)
[2018-10-07 10:56] LABS: ALBUMIN 4.1 GM/DL (3.2-4.5); BILIRUBIN,TOTAL 0.4 MG/DL (0.1-1.0); CREATININE SERUM 0.95 MG/DL (0.60-1.30); POTASSIUM 4.1 MMOL/L (3.6-5.0); TOTAL PROTEIN 7.1 GM/DL (6.4-8.2)
[2018-11-05 09:23] LABS: BASOPHILS % (AUTO) 0 % (0-10); EOSINOPHILS # (AUTO) 0.2 10^3/uL (0.0-0.3); EOSINOPHILS % (AUTO) 4 % (0-10); HEMATOCRIT 37 % (35-52); HEMOGLOBIN 11.8 G/DL (11.5-16.0); LYMPHOCYTES # (AUTO) 1.1 X 10^3 (1.0-4.0); LYMPHOCYTES % (AUTO) 23 % (12-44); MEAN CORPUSCULAR HEMOGLOBIN 29 PG (25-34); MEAN CORPUSCULAR HGB CONC 32 G/DL (32-36); MEAN CORPUSCULAR VOLUME 90 FL (80-99); MEAN PLATELET VOLUME 9.8 FL (7.4-10.4); MONOCYTES # (AUTO) 0.5 X 10^3 (0.0-1.0); MONOCYTES % (AUTO) 11 % (0-12); NEUTROPHILS % (AUTO) 62 % (42-75); PLATELET COUNT 262 10^3/uL (130-400); RED CELL DISTRIBUTION WIDTH 13.6 % (10.0-14.5); WHITE BLOOD COUNT 4.9 10^3/uL (4.3-11.0)
[2018-11-05 09:47] LABS: ALBUMIN 3.8 GM/DL (3.2-4.5); BILIRUBIN,TOTAL 0.4 MG/DL (0.1-1.0); CALCIUM 8.9 MG/DL (8.5-10.1); CREATININE SERUM 1.03 MG/DL (0.60-1.30); POTASSIUM 3.7 MMOL/L (3.6-5.0); TOTAL PROTEIN 6.8 GM/DL (6.4-8.2)
[2018-12-03 10:35] LABS: BASOPHILS # (AUTO) 0.1 10^3/uL (0.0-0.1); BASOPHILS % (AUTO) 2 % (0-10); EOSINOPHILS # (AUTO) 0.2 10^3/uL (0.0-0.3); EOSINOPHILS % (AUTO) 5 % (0-10); HEMATOCRIT 34 % (35-52); HEMOGLOBIN 10.8 G/DL (11.5-16.0); LYMPHOCYTES # (AUTO) 1.2 X 10^3 (1.0-4.0); LYMPHOCYTES % (AUTO) 27 % (12-44); MEAN CORPUSCULAR HEMOGLOBIN 29 PG (25-34); MEAN CORPUSCULAR HGB CONC 32 G/DL (32-36); MEAN CORPUSCULAR VOLUME 90 FL (80-99); MEAN PLATELET VOLUME 9.8 FL (7.4-10.4); MONOCYTES # (AUTO) 0.6 X 10^3 (0.0-1.0); MONOCYTES % (AUTO) 13 % (0-12); NEUTROPHILS # (AUTO) 2.2 X 10^3 (1.8-7.8); NEUTROPHILS % (AUTO) 52 % (42-75); PLATELET COUNT 332 10^3/uL (130-400); RED CELL DISTRIBUTION WIDTH 13.6 % (10.0-14.5); WHITE BLOOD COUNT 4.3 10^3/uL (4.3-11.0)
[2018-12-03 11:09] LABS: ALBUMIN 3.5 GM/DL (3.2-4.5); BILIRUBIN,TOTAL 0.6 MG/DL (0.1-1.0); CALCIUM 8.9 MG/DL (8.5-10.1); CREATININE SERUM 1.78 MG/DL (0.60-1.30); POTASSIUM 3.9 MMOL/L (3.6-5.0); TOTAL PROTEIN 6.9 GM/DL (6.4-8.2)
[~2018-12-17] VITALS: Ht 167.6 cm; Wt 106.1 kg
[~2018-12-17 14:11] MED LIST changes: -HOLD METFORMIN - RECEIVED CONTRAST 20 ML VIAL IV SCH; -IOHEXOL 350 MG/ML 100 ML (OMNIPAQUE 350) VIAL IV ONE; +NIVOLUMAB 240 MG in NS (IVPB) CANCER CENTER 50 ML IV SCH; +NS (IVPB) CANCER CENTER 250 ML IV SCH; -NS 100 ML (IVPB) BAG IV ONE
[2018-12-17 14:32] LABS: BASOPHILS % (AUTO) 1 % (0-10); EOSINOPHILS # (AUTO) 0.2 10^3/uL (0.0-0.3); EOSINOPHILS % (AUTO) 5 % (0-10); HEMATOCRIT 31 % (35-52); HEMOGLOBIN 9.8 G/DL (11.5-16.0); LYMPHOCYTES # (AUTO) 1.2 X 10^3 (1.0-4.0); LYMPHOCYTES % (AUTO) 29 % (12-44); MEAN CORPUSCULAR HEMOGLOBIN 29 PG (25-34); MEAN CORPUSCULAR HGB CONC 32 G/DL (32-36); MEAN CORPUSCULAR VOLUME 91 FL (80-99); MEAN PLATELET VOLUME 9.8 FL (7.4-10.4); MONOCYTES # (AUTO) 0.4 X 10^3 (0.0-1.0); MONOCYTES % (AUTO) 10 % (0-12); NEUTROPHILS # (AUTO) 2.3 X 10^3 (1.8-7.8); NEUTROPHILS % (AUTO) 56 % (42-75); PLATELET COUNT 182 10^3/uL (130-400); RED CELL DISTRIBUTION WIDTH 13.4 % (10.0-14.5); WHITE BLOOD COUNT 4.1 10^3/uL (4.3-11.0)
[2018-12-17 15:13] LABS: ALBUMIN 3.5 GM/DL (3.2-4.5); BILIRUBIN,TOTAL 0.6 MG/DL (0.1-1.0); CALCIUM 8.6 MG/DL (8.5-10.1); CREATININE SERUM 1.39 MG/DL (0.60-1.30); POTASSIUM 3.8 MMOL/L (3.6-5.0); TOTAL PROTEIN 6.4 GM/DL (6.4-8.2)
== END 2018-12-22 | disposition home or self-care (01) ==
LOC: ONC 14:11
PROVIDERS: ATTEND Internal Medicine Hematology & Oncology
DX: Z51.11 Encounter for antineoplastic chemotherapy (principal); C43.4 Malignant melanoma of scalp and neck; C73 Malignant neoplasm of thyroid gland; C77.0 Secondary and unspecified malignant neoplasm of lymph nodes of head, face and neck; M06.9 Rheumatoid arthritis, unspecified; M79.7 Fibromyalgia; I10 Essential (primary) hypertension; G43.909 Migraine, unspecified, not intractable, without status migrainosus; R11.0 Nausea; Z79.899 Other long term (current) drug therapy
CPT/HCPCS: 36591; 80053; 84432; 84443; 85025; 86376; 86800; 87324; 87449; 96413; 99213

== ENCOUNTER 2019-03-10 08:31 | Outpatient (RCR) | payer BC ==
[2019-01-13 09:33] LABS: BASOPHILS % (AUTO) 1 % (0-10); EOSINOPHILS # (AUTO) 0.2 10^3/uL (0.0-0.3); EOSINOPHILS % (AUTO) 4 % (0-10); HEMATOCRIT 34 % (35-52); LYMPHOCYTES # (AUTO) 1.1 X 10^3 (1.0-4.0); LYMPHOCYTES % (AUTO) 20 % (12-44); MEAN CORPUSCULAR HEMOGLOBIN 29 PG (25-34); MEAN CORPUSCULAR HGB CONC 32 G/DL (32-36); MEAN CORPUSCULAR VOLUME 92 FL (80-99); MEAN PLATELET VOLUME 9.7 FL (7.4-10.4); MONOCYTES # (AUTO) 0.7 X 10^3 (0.0-1.0); MONOCYTES % (AUTO) 13 % (0-12); NEUTROPHILS # (AUTO) 3.5 X 10^3 (1.8-7.8); NEUTROPHILS % (AUTO) 63 % (42-75); PLATELET COUNT 249 10^3/uL (130-400); RED CELL DISTRIBUTION WIDTH 13.8 % (10.0-14.5); WHITE BLOOD COUNT 5.6 10^3/uL (4.3-11.0)
[2019-01-13 09:53] LABS: ALBUMIN 3.9 GM/DL (3.2-4.5); BILIRUBIN,TOTAL 0.5 MG/DL (0.1-1.0); CREATININE SERUM 1.36 MG/DL (0.60-1.30); POTASSIUM 3.8 MMOL/L (3.6-5.0)
[2019-02-10 10:39] LABS: BASOPHILS % (AUTO) 1 % (0-10); EOSINOPHILS # (AUTO) 0.2 10^3/uL (0.0-0.3); EOSINOPHILS % (AUTO) 3 % (0-10); HEMATOCRIT 34 % (35-52); LYMPHOCYTES # (AUTO) 1.2 X 10^3 (1.0-4.0); LYMPHOCYTES % (AUTO) 20 % (12-44); MEAN CORPUSCULAR HEMOGLOBIN 29 PG (25-34); MEAN CORPUSCULAR HGB CONC 32 G/DL (32-36); MEAN CORPUSCULAR VOLUME 90 FL (80-99); MEAN PLATELET VOLUME 9.3 FL (7.4-10.4); MONOCYTES # (AUTO) 0.6 X 10^3 (0.0-1.0); MONOCYTES % (AUTO) 10 % (0-12); NEUTROPHILS % (AUTO) 66 % (42-75); PLATELET COUNT 261 10^3/uL (130-400); RED CELL DISTRIBUTION WIDTH 13.5 % (10.0-14.5)
[2019-02-10 11:06] LABS: ALBUMIN 3.8 GM/DL (3.2-4.5); BILIRUBIN,TOTAL 0.6 MG/DL (0.1-1.0); CALCIUM 9.1 MG/DL (8.5-10.1); CREATININE SERUM 1.44 MG/DL (0.60-1.30); POTASSIUM 3.9 MMOL/L (3.6-5.0); TOTAL PROTEIN 6.8 GM/DL (6.4-8.2)
[2019-03-10 08:54] LABS: BASOPHILS % (AUTO) 1 % (0-10); EOSINOPHILS # (AUTO) 0.4 10^3/uL (0.0-0.3); EOSINOPHILS % (AUTO) 6 % (0-10); HEMATOCRIT 34 % (35-52); HEMOGLOBIN 11.1 G/DL (11.5-16.0); LYMPHOCYTES # (AUTO) 1.3 X 10^3 (1.0-4.0); LYMPHOCYTES % (AUTO) 21 % (12-44); MEAN CORPUSCULAR HEMOGLOBIN 29 PG (25-34); MEAN CORPUSCULAR HGB CONC 32 G/DL (32-36); MEAN CORPUSCULAR VOLUME 90 FL (80-99); MEAN PLATELET VOLUME 9.6 FL (7.4-10.4); MONOCYTES # (AUTO) 0.7 X 10^3 (0.0-1.0); MONOCYTES % (AUTO) 11 % (0-12); NEUTROPHILS # (AUTO) 3.8 X 10^3 (1.8-7.8); NEUTROPHILS % (AUTO) 61 % (42-75); PLATELET COUNT 232 10^3/uL (130-400); RED CELL DISTRIBUTION WIDTH 13.3 % (10.0-14.5); WHITE BLOOD COUNT 6.2 10^3/uL (4.3-11.0)
[2019-03-10 09:13] LABS: ALBUMIN 3.9 GM/DL (3.2-4.5); BILIRUBIN,TOTAL 0.3 MG/DL (0.1-1.0); CALCIUM 8.9 MG/DL (8.5-10.1); CREATININE SERUM 1.54 MG/DL (0.60-1.30); POTASSIUM 4.2 MMOL/L (3.6-5.0)
== END 2019-03-31 | disposition home or self-care (01) ==
LOC: ONC 08:31
PROVIDERS: ATTEND Internal Medicine Hematology & Oncology
DX: Z51.11 Encounter for antineoplastic chemotherapy (principal); C43.4 Malignant melanoma of scalp and neck; C73 Malignant neoplasm of thyroid gland; C77.0 Secondary and unspecified malignant neoplasm of lymph nodes of head, face and neck; M06.9 Rheumatoid arthritis, unspecified; M79.7 Fibromyalgia; I10 Essential (primary) hypertension; G43.909 Migraine, unspecified, not intractable, without status migrainosus; R11.0 Nausea; Z79.899 Other long term (current) drug therapy
CPT/HCPCS: 36591; 80053; 84443; 85025; 96413

== ENCOUNTER → 2019-06-07 | Outpatient (CLI) | payer BC ==
[~2019-06-07] MED LIST changes: -NIVOLUMAB 240 MG in NS (IVPB) CANCER CENTER 50 ML IV SCH; -NS (IVPB) CANCER CENTER 250 ML IV SCH
--- NOTE | 2019-06-07 14:22 | Diagnostic Imaging Report ---
INDICATION: Nodule in left neck. TECHNIQUE: Limited real-time grayscale images were obtained over the neck just inferior to the left ear. FINDINGS: There is a hypoechoic nodule measuring 1.7 x 1.2 x 1.6 cm. There is a second similar-appearing nodule measuring 0.5 x 0.4 x 0.5 cm. These appear to be adjacent to the parotid gland. These are nonspecific. IMPRESSION: Nonspecific hypoechoic nodules in and/or adjacent to the parotid gland. Primary parotid mass is a consideration as is a lymph node. This can be better evaluated with contrast-enhanced CT neck. Dictated by: Dictated on workstation # [id number]
== END ==
LOC: RAD 10:19
PROVIDERS: ATTEND Internal Medicine Hematology & Oncology
DX: R22.1 Localized swelling, mass and lump, neck (principal)
CPT/HCPCS: 76536

== ENCOUNTER → 2019-06-14 | Outpatient (CLI) | payer BC ==
--- NOTE | 2019-06-14 10:52 | Diagnostic Imaging Report ---
PROCEDURE: CT neck soft tissue without contrast. TECHNIQUE: Multiple contiguous axial images were obtained through the neck without the use of intravenous contrast. Auto Exposure Controls were utilized during the CT exam to meet ALARA standards for radiation dose reduction. INDICATION: Left neck mass. Further evaluation of abnormal thyroid ultrasound. COMPARISON: CT neck of 11/06/2018. FINDINGS: The soft tissue nodule in the posterior aspect of the superficial left thyroid lobe has increased in size since CT of 11/06/2018. It now measures 13 x 13 x 18 mm (previously 9 x 9 x 10 mm). Postsurgical changes with numerous surgical clips in the left parotid gland and left neck are similar. There are no enlarging cervical lymph nodes elsewhere; however, there are numerous subcentimeter bilateral cervical lymph nodes that are unchanged since prior examination. Thyroidectomy has been performed. No lymphadenopathy in the upper mediastinum. No retropharyngeal fluid collection. Parapharyngeal fat spaces are normal. Nasopharynx, oropharynx, and hypopharynx are normal. No mass in the floor of the mouth. No worrisome focal osseous lesions. No high-grade spinal stenosis. The lung apices are clear. IMPRESSION: 1. The soft tissue nodule in the posterior aspect of the left parotid gland has increased in size since 11/06/2018 and may represent a malignant process. 2. No enlarging cervical lymph nodes elsewhere in the neck. Dictated by: Dictated on workstation # [id number]
== END ==
LOC: RAD 09:31
PROVIDERS: ATTEND Internal Medicine Hematology & Oncology
DX: C43.4 Malignant melanoma of scalp and neck (principal); R93.89 Abnormal findings on diagnostic imaging of other specified body structures
CPT/HCPCS: 70490

== ENCOUNTER 2019-06-16 12:54 | Outpatient (RCR) | payer BC ==
[2019-06-14 09:55] LABS: CALCIUM 8.7 MG/DL (8.5-10.1); CREATININE SERUM 1.5 MG/DL (0.60-1.30); POTASSIUM 4.3 MMOL/L (3.6-5.0)
[~2019-06-16 12:54] MED LIST changes: -ONDA8TAB12 PO; +ONDA8TAB15 PO
== END 2019-08-10 | disposition home or self-care (01) ==
LOC: ONC 12:54
PROVIDERS: ATTEND Internal Medicine Hematology & Oncology
DX: C43.4 Malignant melanoma of scalp and neck (principal); C73 Malignant neoplasm of thyroid gland; C77.0 Secondary and unspecified malignant neoplasm of lymph nodes of head, face and neck; M06.9 Rheumatoid arthritis, unspecified; M79.7 Fibromyalgia; I10 Essential (primary) hypertension; G43.909 Migraine, unspecified, not intractable, without status migrainosus; R11.0 Nausea; Z79.899 Other long term (current) drug therapy; Z45.2 Encounter for adjustment and management of vascular access device
CPT/HCPCS: 80048; 84432; 84443; 86800; 99212

== ENCOUNTER → 2019-06-16 | Outpatient (CLI) | payer BC | LOC: CARD 09:44 | PROVIDERS: ATTEND Radiology Radiation Oncology | DX: C73 Malignant neoplasm of thyroid gland (principal) | CPT/HCPCS: 79005 ==

== ENCOUNTER → 2019-06-23 | Outpatient (CLI) | payer BC ==
--- NOTE | 2019-06-23 10:56 | Diagnostic Imaging Report ---
Indication: Thyroid cancer Metastatic thyroid scan 109.5 mCi of I-131 was given orally on 06/16/2019. There is intense uptake of isotope in the thyroid bed. There are no abnormal areas of uptake elsewhere in the body. IMPRESSION: There are some persistent uptake in the thyroid bed suggesting incomplete thyroidectomy Dictated by: Dictated on workstation # [id number]
== END ==
LOC: CARD 09:21
PROVIDERS: ATTEND Radiology Radiation Oncology
DX: C73 Malignant neoplasm of thyroid gland (principal)
CPT/HCPCS: 78018

== ENCOUNTER → 2019-07-20 | Outpatient (CLI) | payer BC ==
--- NOTE | 2019-07-20 15:18 | Diagnostic Imaging Report ---
INDICATION: Recurrent malignant melanoma of the neck, subsequent restaging. Patient also has history of thyroid carcinoma. TECHNIQUE: Serum blood glucose level at the time of injection is 105 mg/dL. Patient was administered 12.1 mCi F-18 FDG intravenously in the left antecubital location and whole body PET imaging was performed. Noncontrast CT was also performed for attenuation correction and anatomic correlation. COMPARISON: No prior PET/CT study is available for comparison. FINDINGS: There is symmetric activity throughout the brain. A recently biopsied mass adjacent to the left parotid gland is hypermetabolic with SUV max of approximately 11.2. No other hypermetabolic neck lymph nodes are identified. No hypermetabolic nodes in the mediastinum or kiesha are seen. Pulmonary parenchyma is unremarkable. There is physiologic activity within the GI and tracts. No suspicious hypermetabolism in the abdomen or pelvis is identified. Imaging of the lower extremities demonstrates bilateral knee replacements. No suspicious hypermetabolic foci are identified. IMPRESSION: Abnormal whole body PET scan demonstrating hypermetabolic lymph node in the left neck adjacent to the left parotid gland, which has been previously biopsied. No other hypermetabolic foci are identified. Dictated by: Dictated on workstation # [id number]
== END ==
LOC: RAD 10:48
PROVIDERS: ATTEND Internal Medicine Hematology & Oncology
DX: C43.4 Malignant melanoma of scalp and neck (principal); C73 Malignant neoplasm of thyroid gland